=== PATIENT | male | born 1970 | race Caucasian/White ===

== ENCOUNTER 2020-12-28 08:59 | Inpatient (IN) | payer SELFPAY ==
[~2020-12-28] VITALS: Ht 182.9 cm; Wt 86.2 kg
[2020-12-28] VITALS (7 sets, daily range): BP systolic 171–202; BP diastolic 98–111
[2020-12-28] MEDS ORDERED: HYDRALAZINE HCL 20 MG/ML VIAL ONE (09:57)
[2020-12-28] MEDS ORDERED: HYDRALAZINE HCL 20 MG/ML VIAL IV ONE ×3 (10:00→12:00)
[2020-12-28] MEDS ORDERED: LABETALOL HCL 5 MG/ML 20ML VIAL IV STA (11:02)
[2020-12-28] MEDS ORDERED: LABETALOL HCL 20 ML ONE (11:25)
[2020-12-28] MEDS: HYDRALAZINE HCL 20 MG/ML VIAL IV PRN ×2 (14:16→20:09)
[2020-12-28] MEDS ORDERED: HYDRALAZINE HCL 20 MG/ML VIAL IV NR (16:45)
[2020-12-28] MEDS: ACETAMINOPHEN 325 MG TAB PO PRN (16:50)
[2020-12-28] MEDS: CARVEDILOL 12.5 MG TAB PO SCH (17:59)
[2020-12-28] MEDS: AMLODIPINE BESYLATE 10 MG TAB PO SCH (17:59)
[2020-12-28 19:04] LABS: CLARITY,URINE CLEAR (CLEAR); COLOR,URINE YELLOW (YELLOW); LEUKOCYTE ESTERASE ,URINE NEGATIVE (NEGATIVE); NITRITE,URINE NEGATIVE (NEGATIVE)
[2020-12-28 19:05] LABS: KETONES,URINE NEGATIVE (NEGATIVE); PROTEIN,URINE DIPSTICK 2+ (NEGATIVE); URINE UROBILINOGEN 0.2 mg/dL (0.2 - 1)
[2020-12-28 19:09] LABS: RBC,URINE 0-5 /HPF (0-5); WBC,URINE (MAN) 0-5 /HPF (0-5)
[2020-12-28] MEDS ORDERED: TEMAZEPAM 7.5 MG CAP PO PRN (20:30)
[2020-12-29] VITALS (8 sets, daily range): BP systolic 115–156; BP diastolic 81–100
[2020-12-29 05:17] LABS: ANION GAP 14.9 mmol/L (8-16); CALCIUM 8.9 mg/dL (8.4-10.2); CREATININE, SERUM 2.14 mg/dL (0.72-1.25); POTASSIUM 3.9 mmol/L (3.5-5.1)
[2020-12-29] MEDS: CARVEDILOL 12.5 MG TAB PO SCH ×2 (08:17→16:50)
[2020-12-29] MEDS: AMLODIPINE BESYLATE 10 MG TAB PO SCH (08:17)
[2020-12-29] MEDS ORDERED: CARBAMAZEPINE200 MG PO (08:19)
[2020-12-29] MEDS: FLUTICASONE PROPIONATE NASAL SPRAY NS SCH ×2 (08:22→17:00)
[2020-12-29] MEDS ORDERED: AMLODIPINE BESYLATE 10 MG TAB PO SCH (09:00)
[2020-12-29] MEDS: HYDRALAZINE HCL 20 MG/ML VIAL IV PRN (13:13)
[2020-12-30] VITALS (7 sets, daily range): BP systolic 127–151; BP diastolic 88–103
[2020-12-30 06:12] LABS: CALCIUM 8.5 mg/dL (8.4-10.2); CREATININE, SERUM 2.14 mg/dL (0.72-1.25)
[2020-12-30] MEDS: FLUTICASONE PROPIONATE NASAL SPRAY NS SCH ×2 (08:21→16:43)
[2020-12-30] MEDS: AMLODIPINE BESYLATE 10 MG TAB PO SCH (08:22)
[2020-12-30] MEDS: CARVEDILOL 12.5 MG TAB PO SCH ×2 (08:22→16:35)
[2020-12-30 15:08] LABS: INR 0.98; PROTHROMBIN TIME 13.8 seconds (11.9-14.5)
[2020-12-30 15:11] LABS: TOTAL PROTEIN, URINE 58.4 mg/dL (1-14)
[2020-12-30] MEDS: ACETAMINOPHEN 325 MG TAB PO PRN (18:00)
[2020-12-31 05:33] VITALS: BP 141/94
[2020-12-31 06:23] LABS: BASOPHILS # (AUTO) 0.1 (0.0-0.1); BASOPHILS % 0.4 % (0.0-1.0); EOSINOPHILS # (AUTO) 0.1 (0.0-0.4); EOSINOPHILS % 0.9 % (0.0-6.0); HEMATOCRIT 40.2 % (38.2-49.6); HEMOGLOBIN 13.9 g/dL (14.0-18.0); LYMPHOCYTES # (AUTO) 2.6 (1.0-3.2); LYMPHOCYTES % 20.4 % (18.0-39.1); MEAN CORPUSCULAR HEMOGLOBIN 32.8 pg (28-32); MEAN CORPUSCULAR HGB CONC 34.6 g/dL (31-35); MEAN CORPUSCULAR VOLUME 94.8 fL (81-99); MONOCYTES # (AUTO) 0.8 (0.2-0.8); MONOCYTES % 6.3 % (4.4-11.3); NEUTROPHILS # (AUTO) 9.1 (2.1-6.9); NEUTROPHILS % 71.4 % (38.7-80.0); PLATELET COUNT 397 x10e3/uL (140-360); RED BLOOD COUNT 4.24 x10e6/uL (4.3-5.7); RED CELL DISTRIBUTION WIDTH 11.9 % (11.7-14.4)
[2020-12-31 06:37] LABS: ANION GAP 15.2 mmol/L (8-16); CALCIUM 8.6 mg/dL (8.4-10.2); CREATININE, SERUM 2.28 mg/dL (0.72-1.25); POTASSIUM 4.2 mmol/L (3.5-5.1)
[2020-12-31 07:45] VITALS: BP 143/93
[2020-12-31] MEDS: FLUTICASONE PROPIONATE NASAL SPRAY NS SCH (09:00)
[2020-12-31 11:16] VITALS: BP 124/112
[2020-12-31] MEDS: CARVEDILOL 12.5 MG TAB PO SCH (11:19)
[2020-12-31] MEDS: AMLODIPINE BESYLATE 10 MG TAB PO SCH (11:19)
[2020-12-31] MEDS ORDERED: CARVEDILOL12.5 MG PO (12:02)
[2020-12-31] MEDS ORDERED: NORVASC10 MG PO (12:03)
== END 2020-12-31 12:20 | disposition home or self-care (01) | DRG 683 ==
LOC: FSED 09:23 → ERHOLD 12:06 → MED/SURG 13:26 → OBSVTOIN 12-29 08:23
PROVIDERS: ADMIT Family Medicine; ATTEND Family Medicine
DX: N17.9 Acute kidney failure, unspecified (principal); I16.1 Hypertensive emergency; G40.909 Epilepsy, unspecified, not intractable, without status epilepticus; Z20.822 Contact with and (suspected) exposure to COVID-19; I12.9 Hypertensive chronic kidney disease with stage 1 through stage 4 chronic kidney disease, or unspecified chronic kidney disease; N18.9 Chronic kidney disease, unspecified; F41.9 Anxiety disorder, unspecified; F32.A Depression, unspecified; M19.012 Primary osteoarthritis, left shoulder; M19.011 Primary osteoarthritis, right shoulder; M16.0 Bilateral primary osteoarthritis of hip
CPT/HCPCS: 36415; 76770; 80048; 80053; 81001; 81050; 84156; 84165; 85025; 85610; 86039; 86160; 86225; 99283; G0378; J0360; U0002